=== PATIENT | female | born 1960 | race Hispanic/Latino ===

== ENCOUNTER 2023-09-14 19:51 | Emergency (ER) | payer BC, MEDICARE ==
[~2023-09-14] VITALS: Ht 167.6 cm; Wt 98.0 kg
[2023-09-14] MEDS ORDERED: ENOXAPARIN SODIUM 40 MG/0.4 ML SYRINGE SQ ONE (20:30)
[2023-09-14] MEDS ORDERED: ALBUTEROL 0.083% 2.5 MG/3 ML INH IH ONE (20:30)
[2023-09-14] MEDS ORDERED: NITROGLYCERIN 1GM OINT 1 INCH/1GM TD ONE (20:30)
[2023-09-14] MEDS ORDERED: ASPIRIN 325MG TAB PO ONE (20:30)
[2023-09-14] MEDS ORDERED: GUAIFENESIN 600 MG TABLET.ER PO ONE (20:30)
[2023-09-14] MEDS ORDERED: HYDROXYZINE 25 MG TABLET PO ONE (20:30)
[2023-09-14] MEDS ORDERED: 0.9%NACL 1000ML 1,000 ML IV ONE (20:30)
[2023-09-14 20:37] LABS: RAPID GROUP A STREP negative (NEGATIVE)
[2023-09-14 20:39] LABS: BASOPHILS # (AUTO) 0.02 K/uL (0.00-0.20); BASOPHILS % (AUTO) 0.3 % (0.0-5.0); EOSINOPHILS # (AUTO) 0.17 K/uL (0.00-0.70); EOSINOPHILS % (AUTO) 2.1 % (0.0-8.0); HEMATOCRIT 38.7 % (36-48); IMMATURE GRANULOCYTE ABSOLUTE 0.02 K/uL (0-1); LYMPHOCYTES # (AUTO) 3.5 K/uL (1.0-4.8); LYMPHOCYTES % (AUTO) 44.3 % (21.0-51.0); MEAN CORPUSCULAR HEMOGLOBIN 27.8 pg (27.0-33.0); MEAN CORPUSCULAR HGB CONC 35.1 g/dL (32.0-36.0); MEAN CORPUSCULAR VOLUME 79.1 fL (79-99); MONOCYTES # (AUTO) 0.7 K/uL (0.1-1.0); MONOCYTES % (AUTO) 8.3 % (3.0-13.0); NEUTROPHILS # (AUTO) 3.6 K/uL (1.8-7.7); NEUTROPHILS % (AUTO) 44.7 % (40.0-77.0); PLATELET COUNT (AUTO) 253 K/uL (130-400); RED BLOOD CELL COUNT(AUTO) 4.89 MIL/uL (4.00-5.50); RED CELL DISTRIBUTION WIDTH 12.7 % (11.0-15.5)
[2023-09-14 20:39] LABS: SARS-CoV-2, RNA, NAAT NEGATIVE SARS CoV-2 (NEGATIVE)
[2023-09-14 20:47] LABS: CREATININE 0.9 mg/dL (0.5-1.5); POTASSIUM 3.3 mmol/L (3.5-5.1)
[2023-09-14 20:47] LABS: INFLUENZA TYPE A Negative For Type A (NEGATIVE); INFLUENZA TYPE B Negative For Type B (NEGATIVE)
[2023-09-14 21:27] VITALS: PULSE 65; RESP 16
[2023-09-14] MEDS ORDERED: AUD IH (21:40)
[2023-09-14] MEDS ORDERED: GUAI600T50 PO (21:40)
[2023-09-14] MEDS ORDERED: NAPR-1192 PO (21:40)
[2023-09-14] MEDS ORDERED: POTASSIUM BICARB/CIT AC 25 MEQ TABLET.EFF PO ONE (22:00)
[2023-09-14 22:38] VITALS: BP 138/88; PULSE 87; RESP 18; O2SAT 96
== END 2023-09-14 22:42 | disposition home or self-care (01) ==
LOC: EDH 19:51
DX: J20.8 Acute bronchitis due to other specified organisms (principal); R07.89 Other chest pain; E87.6 Hypokalemia; E86.0 Dehydration; I10 Essential (primary) hypertension; Z20.822 Contact with and (suspected) exposure to COVID-19
CPT/HCPCS: 99285; 96360; 71045; 87635; 84484; 80048; 85025; 87880; 87804 ×2; 36415; 96372; 93005; 94640; J1650

== ENCOUNTER → 2024-06-21 | Outpatient (CLI) | payer MEDICARE ==
[~2024-06-21] MED LIST: AUD IH; GUAI600T50 PO; NAPR-1192 PO
== END | disposition home or self-care (01) ==
LOC: RAH 09:35
PROVIDERS: ATTEND Family Medicine
DX: Z12.31 Encounter for screening mammogram for malignant neoplasm of breast (principal); R92.30 Dense breasts, unspecified
CPT/HCPCS: 77067